=== PATIENT | male | born 1970 | race Two or more races ===

== ENCOUNTER 2017-08-07 02:17 | Emergency (ER) | payer SELFPAY ==
[~2017-08-07] VITALS: Ht 180.3 cm; Wt 90.7 kg
[2017-08-07] MEDS ORDERED: IBUPROFEN600 MG ORAL (02:29)
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
[2017-08-07 02:50] VITALS: BP 133/90
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
== END 2017-08-07 02:47 | disposition home or self-care (01) ==
LOC: EDBD 02:17 → EMR 02:30
DX: S16.1XXA Strain of muscle, fascia and tendon at neck level, initial encounter (principal); V43.52XA Car driver injured in collision with other type car in traffic accident, initial encounter; Y92.89 Other specified places as the place of occurrence of the external cause
CPT/HCPCS: 72040; 99283